=== PATIENT | female | born 1950 | race Caucasian/White ===

== ENCOUNTER 2019-06-20 09:08 | Outpatient (CLI) | payer MEDICARE, SELFPAY ==
--- NOTE | 2019-06-20 09:17 | US_ITS ---
WS: [id number] ADDITIONAL VIEWS LEFT MAMMOGRAM LEFT BREAST ULTRASOUND HISTORY: ABNORMAL MAMMOGRAM - DUCT ECTASIS/FULLNESS COMPARISON: 05/15/2019, 02/28/2017, 10/16/2015 LEFT MAMMOGRAM: Spot compression views and true ML. Asymmetry posterior to the LEFT nipple persists. There is no distortion or retraction of the nipple. There is an adjacent posterior lymph node. LEFT BREAST ULTRASOUND 2-D and color Doppler imaging submitted. Ultrasound directed to the subareolar region. There is no discrete soft tissue mass. There is a benig n lymph node measuring 6 x 4 mm. There is an area of vague mixed echogenicity which is probably madeleine l fibroglandular tissue and corresponds to the finding on the mammogram. There is no shadowing or inc reased vascularity. US/US breast LT limited* [id number] IMPRESSION: BI-RADS: 3-Probably Benign FOLLOW UP: 6 Month Follow-up Recommend LEFT breast mammogram follow-up and possible ultrasound in 6 months. Favor the asymmetry seen posterior to the nipple is benign fibroglandular tissu e.
== END 2019-06-20 09:09 | disposition home or self-care (01) ==
LOC: RADSHAW 09:12
PROVIDERS: PCP Nurse Practitioner Family; Visit Provider Nurse Practitioner Family
DX: N64.89 Other specified disorders of breast (principal); R92.8 Other abnormal and inconclusive findings on diagnostic imaging of breast
CPT/HCPCS: 76642; 77065

== ENCOUNTER → 2019-08-20 10:41 | Outpatient (BNVA) | payer MEDICARE, SELFPAY | PROVIDERS: PCP Nurse Practitioner Family; Visit Provider Specialist | DX: G20 Parkinson's disease (principal); Z87.891 Personal history of nicotine dependence | CPT/HCPCS: 99213 ==

== ENCOUNTER → 2019-11-20 10:41 | Outpatient (BNVA) | payer MEDICARE, SELFPAY | PROVIDERS: PCP Nurse Practitioner Family; Visit Provider Specialist | DX: G20 Parkinson's disease (principal); Z87.891 Personal history of nicotine dependence | CPT/HCPCS: 99213 ==

== ENCOUNTER 2020-01-04 12:30 | Outpatient (CLI) | payer MEDICARE, SELFPAY ==
--- NOTE | 2020-01-04 12:39 | MM_ITS ---
WS: [id number] LEFT DIGITAL MAMMOGRAM WITH CAD LEFT breast ultrasound, limited HISTORY: ABNORMAL mammogram, duct ECTASIS COMPARISON: 02/28/2017, 06/20/2019, 05/15/2019 and 09/30/2014 Technique: CC, MLO and ML views. Compression views MLO and cc. Breast composition: There are scattered areas of fibroglandular density. Dilated tubular structure p osterior to the nipple is again identified. There is an additional stable asymmetry in the anterior L EFT breast just lateral to the nipple line which is been present on multiple prior studies. LEFT breast ultrasound, limited No significant change in appearance of the tubular cystic and complex cystic mass posterior to the ni pple. Similar to the prior study. Favor this is probably an area of duct ectasia due to its stability and appearance. MM/[place] [id number] IMPRESSION: BI-RADS: 3-Probably Benign FOLLOW UP: 6 Month Follow-up Patient to return in May 2020 for bilateral mammography. Additional imagin g of the LEFT breast asymmetry can be obtained to document continued stability.
== END 2020-01-04 12:31 | disposition home or self-care (01) ==
LOC: RADSHAW 12:35
PROVIDERS: PCP Nurse Practitioner Family; Visit Provider Nurse Practitioner Family
DX: R92.8 Other abnormal and inconclusive findings on diagnostic imaging of breast (principal); N64.89 Other specified disorders of breast
CPT/HCPCS: 76642; 77065

== ENCOUNTER 2020-06-16 08:22 | Outpatient (CLI) | payer MEDICARE, SELFPAY ==
--- NOTE | 2020-06-16 08:28 | MM_ITS ---
WS: [id number] BILATERAL DIGITAL DIAGNOSTIC MAMMOGRAM MAMMOGRAPHY WITH CAD CLINICAL INFORMATION: LT BREAST ASYMMETRY COMPARISON: January 04, 2020 TECHNIQUE: Bilateral CC, MLO, and ML views. FINDINGS: Scattered fibroglandular densities bilaterally. Stable asymmetric density at the anterior left breast as previously described No suspicious focal mass, asymmetry, calcifications, or architectural distortion. No evidence of perico gnancy. MM/[place] [id number] IMPRESSION: BI-RADS: 2-Benign FOLLOW UP: 1 Year Follow-up Recommend return to annual diagnostic mammography.
== END 2020-06-16 08:23 | disposition home or self-care (01) ==
LOC: RADSHAW 08:24
PROVIDERS: PCP Nurse Practitioner Family; Visit Provider Nurse Practitioner Family
DX: N64.89 Other specified disorders of breast (principal)
CPT/HCPCS: 77066

== ENCOUNTER → 2020-08-27 09:38 | Outpatient (BNVA) | payer MEDICARE, MEDICAID, SELFPAY | PROVIDERS: PCP Nurse Practitioner Family; Visit Provider Specialist | DX: G20 Parkinson's disease (principal); Z87.891 Personal history of nicotine dependence | CPT/HCPCS: 99213 ==

== ENCOUNTER → 2020-09-04 09:07 | Outpatient (BNVA) | payer MEDICARE, MEDICAID, SELFPAY | PROVIDERS: PCP Nurse Practitioner Family; Visit Provider Surgery | DX: Z86.010 Personal history of colon polyps (principal); Z20.822 Contact with and (suspected) exposure to COVID-19 | CPT/HCPCS: 87635 ==

== ENCOUNTER 2020-09-11 08:35 | Day surgery (SDC) | payer MEDICARE, MEDICAID, SELFPAY ==
[2020-09-05 13:11] VITALS: BMI 34.5
--- NOTE | 2020-09-11 08:51 | ANES.PREANE2 ---
Pre-Anesthetic Assessment Pre-Anesthetic Assessment: Height/Weight: Height 1.6 m Weight 88.451 kg Proposed Procedure: Operation Date: 09/11/20 10:30 Proposed Procedures p Colonoscopy [id number] z86.010(Not Applicable) - Vito Steele MD Was Beta Mansoor taken within 24 hours: N/A Was Clonidine taken within 24 hours: N/A Social: Social History: No alcohol and No tobacco Exam: Pre-Anes Outpt Exam: alert, oriented x 3, clear to auscultation bilaterally and regular rate & rhythm Airway: Submandibular: WNL Cervical ROM: WNL MP: 2 Dentition: Full CV/HEM: CV/HEM: HTN Metabolic: Metabolic: Thyroid Neuropsych: Neuropsych: Dementia Comments: Dysphagia Anesthetic Plan: ASA status: 2 Risk of > 500 ml blood loss (7ml/kg in children): No PFSH Anesthesia PFSH: Medical History History of colon polyps Hypothyroidism Parkinson's Disease Sleep apnea Surgical History H/O repair of rotator cuff H/O: hysterectomy History of colonoscopy with polypectomy (~2017) Family History Other Cancer Dementia Hypertension Parkinsons Stroke Social History Smoking and tobacco status: former smoker Alcohol intake: never History of recent travel: No Data Anesthesia Cardiac Studies: Holter Monitor 07/31/19
[2020-09-11 09:11] VITALS: BP 118/80; PULSE 77; RESP 18; TEMP 36.5; O2SAT 96
[2020-09-11] MEDS: sodium chloride 0.9% 1,000 ML 30 ML IV (09:34)
--- NOTE | 2020-09-11 10:15 | W.PM.OPSFHP ---
Same Day Surgery H&P Indication for Procedure/HPI DATE OF PROCEDURE: September 11, 2020 CHIEF COMPLAINT/INDICATIONFOR SURGICAL PROCEDURE: colon polyps PREOP DIAGNOSIS: screening colonoscopy PLANNED PROCEDRUE: Operation Date: 09/11/20 10:30 Proposed Procedures p Colonoscopy [id number] z86.010(Not Applicable) - Vito Steele MD Medications/Allergies* Home Medications Medication Instructions Recorded Confirmed Type gabapentin 100 mg capsule 100 mg PO BID 08/20/19 09/11/20 History hydrochlorothiazide 12.5 mg capsule 12.5 mg PO DAILY 08/20/19 09/11/20 History levothyroxine 112 mcg capsule 112 mcg PO DAILY 08/20/19 09/11/20 History potassium 99 mg tablet 99 mg PO DAILY 11/20/19 09/11/20 History ascorbic acid (vitamin C) 500 mg 1,000 mg PO DAILY cap 08/27/20 09/11/20 History capsule aspirin 81 mg chewable tablet 81 mg PO DAILY 08/27/20 09/11/20 History cholecalciferol (vitamin D3) 25 25 mcg PO DAILY 08/27/20 09/11/20 History mcg (1,000 unit) capsule multivitamin 1 tab PO DAILY 08/27/20 09/11/20 History omega-3 fatty acids 1,000 mg 1,000 mg PO DAILY 08/27/20 09/11/20 History capsule thiamine HCl (vitamin B1) 100 mg 100 mg PO DAILY 08/27/20 09/11/20 History tablet Allergies/Adverse Reactions Allergy/AdvReac Type Severity Reaction Status Date / Time hydralazine Allergy Severe ADR/ALGY-Hy Verified 09/01/20 08:22 potension Current Medications: Generic Name Dose Route Start Last Admin Trade Name Freq PRN Reason Stop Dose Admin Sodium Chloride 1,000 mls @ 30 mls/hr 09/11/20 09:00 09/11/20 09:34 Sodium Chloride 0.9% IV 09/12/20 08:59 30 mls/hr .Q24H DHRUV Administration Pertinent History/Comorbid Conditions* Medical History (Updated 09/01/20 @ 08:52 by Faustino Bates MD) History of colon polyps Hypothyroidism Parkinson's Disease Sleep apnea Surgical History (Updated 07/11/20 @ 10:07 by Vito Steele MD) H/O repair of rotator cuff H/O: hysterectomy History of colonoscopy with polypectomy (~2017) Family History (Updated 08/20/19 @ 11:36 by Samia De Leon LPN) Dementia Cancer Hypertension Parkinsons Stroke Social History Smoking and tobacco status: former smoker Alcohol intake: never History of recent travel: No Pertinent Exam Findings alert, oriented x 3 and operative site marked Recommendations Surgery/Procedure today Coding Level of Care Code 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
[2020-09-11 11:07] VITALS: BP 103/74; PULSE 66; RESP 16; TEMP 36.3; O2SAT 99
--- NOTE | 2020-09-11 11:10 | ANE.PACU2 ---
Inpatient post-anesthesia follow up: Airway intact: Yes Vital signs: Temperature 97.7 F Pulse Rate 77 Respiratory Rate 18 Blood Pressure 118/80 Pulse Oximetry 96 Oxygen Delivery Me thod Room Air Oxygen Flow Rate Fraction of Inspir ed Oxygen Hydration adequate: Yes Nausea and vomiting: No Pain level: 1 Mental status: Baseline
[2020-09-11 11:22] VITALS: BP 110/66; PULSE 68; RESP 16; TEMP 36.5; O2SAT 98
--- NOTE | 2020-09-11 14:37 | ANE.PACU2 ---
Inpatient post-anesthesia follow up: Airway intact: Yes Vital signs: Temperature 97.7 F Pulse Rate 68 Respiratory Rate 16 Blood Pressure 110/66 Pulse Oximetry 98 Oxygen Delivery Me thod Room Air Oxygen Flow Rate Fraction of Inspir ed Oxygen Hydration adequate: Yes Nausea and vomiting: No Pain level: 1 Mental status: Baseline
== END 2020-09-11 11:55 | disposition home or self-care (01) ==
PROVIDERS: PCP Nurse Practitioner Family; Visit Provider Surgery
PROC: 0DJD8ZZ Inspection of Lower Intestinal Tract, Via Natural or Artificial Opening Endoscopic (ICD-10-PCS; CPT 45378; principal; 2020-09-11 10:30)
DX: Z12.11 Encounter for screening for malignant neoplasm of colon (principal); Z86.010 Personal history of colon polyps; K57.30 Diverticulosis of large intestine without perforation or abscess without bleeding; K64.8 Other hemorrhoids; Z79.82 Long term (current) use of aspirin; E03.9 Hypothyroidism, unspecified; G47.30 Sleep apnea, unspecified; G20 Parkinson's disease
CPT/HCPCS: 45378; 96360; 96361; J2704; J7030

== ENCOUNTER → 2021-02-12 08:07 | Outpatient (BNVA) | payer MEDICARE, MEDICAID, SELFPAY | PROVIDERS: PCP Nurse Practitioner Family; Referring Provider Nurse Practitioner Family; Visit Provider Podiatrist Foot & Ankle Surgery | DX: M79.671 Pain in right foot (principal) | CPT/HCPCS: 73630 ==

== ENCOUNTER → 2021-03-16 10:34 | Outpatient (BNVA) | payer MEDICARE, MEDICAID, SELFPAY | PROVIDERS: PCP Nurse Practitioner Family; Visit Provider Specialist | DX: G20 Parkinson's disease (principal); Z71.89 Other specified counseling; Z87.891 Personal history of nicotine dependence | CPT/HCPCS: 99214 ==

== ENCOUNTER → 2021-08-04 10:50 | Outpatient (BNVA) | payer MEDICARE, MEDICAID, SELFPAY | PROVIDERS: PCP Nurse Practitioner Family; Visit Provider Family Medicine | DX: E03.9 Hypothyroidism, unspecified (principal); R49.0 Dysphonia | CPT/HCPCS: 84443 ==

== ENCOUNTER → 2021-09-14 08:56 | Outpatient (BNVA) | payer MEDICARE, MEDICAID, SELFPAY | PROVIDERS: PCP Nurse Practitioner Family; Visit Provider Specialist | DX: G20 Parkinson's disease (principal); G62.9 Polyneuropathy, unspecified | CPT/HCPCS: 99213; 99214 ==

== ENCOUNTER 2021-10-19 13:43 | Outpatient (CLI) | payer MEDICARE, MEDICAID, SELFPAY ==
--- NOTE | 2021-10-19 13:56 | MM_ITS ---
WS: [id number] BILATERAL 3D TOMOSYNTHESIS DIGITAL SCREENING MAMMOGRAPHY WITH CAD CLINICAL INFORMATION: SCREENING HISTORY: Screening mammogram. No current complaints. COMPARISON: June 16, 2020 TECHNIQUE: Bilateral CC and MLO views. FINDINGS: Scattered fibroglandular densities bilaterally. No suspicious focal mass, asymmetry, calcifications, or architectural distortion. No evidence of malignancy. MM/[place] [id number] IMPRESSION: BI-RADS: 1-Negative FOLLOW UP: 1 Year Follow-up Recommend return to annual screening mammography.
== END 2021-10-19 13:44 | disposition home or self-care (01) ==
LOC: RADSHAW 13:44
PROVIDERS: PCP Nurse Practitioner Family; Visit Provider Family Medicine
DX: Z12.31 Encounter for screening mammogram for malignant neoplasm of breast (principal)
CPT/HCPCS: 77063; 77067

== ENCOUNTER → 2022-05-19 07:29 | Outpatient (BNVA) | payer MEDICARE, MEDICAID, SELFPAY | PROVIDERS: PCP Family Medicine; Visit Provider Specialist | DX: G62.9 Polyneuropathy, unspecified (principal); G20 Parkinson's disease | CPT/HCPCS: 99213 ==

== ENCOUNTER → 2022-06-16 07:58 | Outpatient (BNVA) | payer MEDICARE, MEDICAID, SELFPAY | PROVIDERS: PCP Family Medicine; Visit Provider Podiatrist Foot & Ankle Surgery | DX: G62.9 Polyneuropathy, unspecified (principal); Q82.8 Other specified congenital malformations of skin; B35.1 Tinea unguium; M21.621 Bunionette of right foot | CPT/HCPCS: 17110; 73630 ==

== ENCOUNTER → 2022-08-25 12:26 | Outpatient (BNVA) | payer MEDICARE, MEDICAID, SELFPAY | PROVIDERS: PCP Family Medicine; Visit Provider Family Medicine | DX: G20 Parkinson's disease (principal); E03.9 Hypothyroidism, unspecified; J06.9 Acute upper respiratory infection, unspecified; G62.9 Polyneuropathy, unspecified | CPT/HCPCS: 80053; 84443; 85025 ==

== ENCOUNTER → 2023-01-19 08:13 | Outpatient (BNVA) | payer MEDICARE, MEDICAID, SELFPAY | PROVIDERS: PCP Family Medicine; Visit Provider Otolaryngology | DX: R49.0 Dysphonia (principal); G20 Parkinson's disease; J38.7 Other diseases of larynx | CPT/HCPCS: 31575; 99213 ==

== ENCOUNTER → 2023-02-28 13:44 | Outpatient (BNVA) | payer MEDICARE, MEDICAID, SELFPAY | PROVIDERS: PCP Family Medicine; Visit Provider Family Medicine | DX: J02.9 Acute pharyngitis, unspecified (principal) | CPT/HCPCS: 87071; 87880 ==

== ENCOUNTER → 2023-03-08 10:25 | Outpatient (BNVA) | payer MEDICARE, MEDICAID, SELFPAY | PROVIDERS: PCP Family Medicine; Visit Provider Otolaryngology | DX: J02.9 Acute pharyngitis, unspecified (principal); J38.7 Other diseases of larynx; R49.0 Dysphonia; G20 Parkinson's disease | CPT/HCPCS: 99213 ==

== ENCOUNTER → 2023-05-18 07:38 | Outpatient (BNVA) | payer MEDICARE, MEDICAID, SELFPAY | PROVIDERS: PCP Family Medicine; Visit Provider Specialist | DX: G20.A1 Parkinson's disease without dyskinesia, without mention of fluctuations (principal) | CPT/HCPCS: 99213 ==

== ENCOUNTER → 2023-09-26 13:59 | Outpatient (BNVA) | payer MEDICARE, MEDICAID, SELFPAY | PROVIDERS: PCP Family Medicine; Visit Provider Family Medicine | DX: E03.9 Hypothyroidism, unspecified (principal); R49.0 Dysphonia; G20.B2 Parkinson's disease with dyskinesia, with fluctuations; J37.1 Chronic laryngotracheitis | CPT/HCPCS: 80053; 84443; 85025 ==

== ENCOUNTER 2023-12-13 11:53 | Outpatient (CLI) | payer MEDICARE, MEDICAID, SELFPAY ==
--- NOTE | 2023-12-13 11:55 | XR_ITS ---
WS: [id number] XR lumbar spine 2-3V* [id number] REASON FOR EXAM: night time claudication/numbness lower extrem/deg disc FINDINGS: No significant rotatory scoliosis. Exaggeration of the lumbar lordosis. 5 lumbar vertebrae with rudimentary disc formation at S1-S2. Mild biconcave compression deformities L1-L3. Mild osteophytosis L2-S1. Significant bridging osteophy tosis and endplate sclerosis at T12-L1 and L1-L2. Disc spaces are intact and relatively well preserved. Moderate degenerative change in the facet joints at L5-S1. No significant listhesis. XR/XR lumbar spine 2-3V* [id number] IMPRESSION: Degenerative spondylosis of the lumbar spine as above.
== END 2023-12-13 11:54 | disposition home or self-care (01) ==
LOC: RAD 11:54
PROVIDERS: PCP Family Medicine; Visit Provider Family Medicine
DX: M51.16 Intervertebral disc disorders with radiculopathy, lumbar region (principal); M43.8X6 Other specified deforming dorsopathies, lumbar region; M25.78 Osteophyte, vertebrae; G95.89 Other specified diseases of spinal cord; M40.56 Lordosis, unspecified, lumbar region; M47.817 Spondylosis without myelopathy or radiculopathy, lumbosacral region
CPT/HCPCS: 72100

== ENCOUNTER 2024-01-03 12:47 | Outpatient (CLI) | payer MEDICARE, MEDICAID, SELFPAY ==
--- NOTE | 2024-01-03 13:45 | MR_ITS ---
WS: [id number] MRI LUMBAR SPINE NONCONTRAST TECHNIQUE: Sagittal T1, T2 and STIR imaging. Axial T1 and T2 imaging. CLINICAL INFORMATION: night time cramping / numbness feet / parkinsons COMPARISON: None. FINDINGS: Mild lumbar curve. Exaggeration of the normal lumbar lordosis. Slight anterolisthesis L4 on L5. Disc space narrowing worse at L5-S1. No acute compression fractures. L1-L2: No significant disc bulging. Mild facet arthropathy. Spinal canal and foramen are patent. L2-L3: Mild disc bulging. Mild facet arthropathy. Spinal canal and foramen are patent. L3-L4: Mild annular bulging. Mild facet arthropathy. Tiny LEFT foraminal protrusion with mild LEFT fo raminal narrowing. RIGHT foramen is patent. L4-L5: Mild disc bulge with osteophytic ridging. Moderate to advanced facet arthropathy. Impingement on the LEFT than RIGHT subarticular recess. Mild LEFT and no significant RIGHT foraminal narrowing. L5-S1: Mild disc bulging with osteophytic ridging. Slight effacement of ventral thecal sac. Slight im pingement traversing S1 nerve roots bilaterally. Mild to moderate facet arthropathy. Foramen are eckert nt. Visualized pelvic bony structures: Normal. Paravertebral soft tissues: Normal. Small RIGHT renal cyst. MR/MR lumbar spine wo con* [id number] IMPRESSION: 1. Mild lumbar curve. No acute compression. Grade 1 anterolisthesis L4 on L5. 2. Disc space narrowing worse at L5-S1. Slight effacement of ventral thecal sa c and slight impingement traversing S1 nerve roots with mild central canal sten osis. 3. Tiny LEFT foraminal protrusion L3-4 with slight impingement exiting LEFT L3 nerve root. Recommend correlation with LEFT L3 nerve root symptoms. 4. Impingement on the LEFT L4-5 subarticular recess with mild central canal st enosis. 5. Moderate facet arthropathy worse at L4-5.
--- NOTE | 2024-01-03 14:30 | USCV_ITS ---
Judith Hagan Age: 73 Gender: F : 1950 Exam Date: 01/03/2024 14:33 Ordering Phys: Lexie Morales MD Technologist: [place] [facility] [place]: pad RIGHT LEFT Brachial 137.00 mmHg Brachial 134.00 mmHg Pressure (mmHg) Waveform Pressure (mmHg) Waveform 179.00 CHILD & ADOLESCENT PSYCHIATRIST 150.00 145.00 DPA 159.00 1.30 Ankle/Brachial Index 1.10 135.00 Pre-Exercise Toe Pressure 126.00 0.99 Pre-Exercise Toe/Brachial Index 0.92 FINDINGS The resting MARTHA 1.3 on the right side and 1.1 on the left side Resting TBI 0.99 on the right and 0.92 on the left CONCLUSIONS Normal resting MARTHA and TBI bilaterally No significant arterial obstruction, based on the above findings Dr Iris Shanks MD [facility] (Electronically Signed) Final Date: 04 January 2024 09:57 S
== END 2024-01-03 12:48 | disposition home or self-care (01) ==
LOC: RAD 12:47
PROVIDERS: PCP Family Medicine; Visit Provider Family Medicine
DX: G20.B2 Parkinson's disease with dyskinesia, with fluctuations (principal); G62.9 Polyneuropathy, unspecified; M48.061 Spinal stenosis, lumbar region without neurogenic claudication; I95.1 Orthostatic hypotension; I87.2 Venous insufficiency (chronic) (peripheral); M51.36 Other intervertebral disc degeneration, lumbar region; M47.816 Spondylosis without myelopathy or radiculopathy, lumbar region; M25.78 Osteophyte, vertebrae; N28.1 Cyst of kidney, acquired
CPT/HCPCS: 72148; 93922

== ENCOUNTER → 2024-01-24 13:53 | Outpatient (BNVA) | payer MEDICARE, MEDICAID, SELFPAY | PROVIDERS: PCP Family Medicine; Visit Provider Orthopaedic Surgery | DX: M48.061 Spinal stenosis, lumbar region without neurogenic claudication (principal) | CPT/HCPCS: 72110; 99204 ==

== ENCOUNTER → 2024-02-02 08:02 | Outpatient (BNVA) | payer MEDICARE, MEDICAID, SELFPAY | PROVIDERS: PCP Family Medicine; Visit Provider Specialist | DX: G20.B2 Parkinson's disease with dyskinesia, with fluctuations (principal) | CPT/HCPCS: 99214 ==

== ENCOUNTER 2024-02-24 08:07 | Outpatient (RCR) | payer MEDICARE, MEDICAID, SELFPAY | END 2024-03-12 23:59 | disposition home or self-care (01) | LOC: SPT 08:07 | PROVIDERS: Visit Provider Specialist | DX: G20.B2 Parkinson's disease with dyskinesia, with fluctuations (principal) | CPT/HCPCS: 97110; 97162 ==

== ENCOUNTER 2024-03-13 06:00 | Outpatient (RCR) | payer MEDICARE, MEDICAID, SELFPAY | END 2024-04-05 23:59 | disposition home or self-care (01) | LOC: SPT 06:00 | PROVIDERS: Visit Provider Specialist | DX: G20.B2 Parkinson's disease with dyskinesia, with fluctuations (principal) | CPT/HCPCS: 97110; 97112; 97530 ==

== ENCOUNTER → 2024-05-28 09:52 | Outpatient (BNVA) | payer MEDICARE, MEDICAID, SELFPAY | PROVIDERS: PCP Family Medicine; Visit Provider Podiatrist Foot & Ankle Surgery | DX: G62.9 Polyneuropathy, unspecified (principal); Q82.8 Other specified congenital malformations of skin; B35.1 Tinea unguium; M21.621 Bunionette of right foot | CPT/HCPCS: 17110 ==

== ENCOUNTER 2024-06-11 15:22 | Outpatient (CLI) | payer MEDICARE, MEDICAID, SELFPAY ==
--- NOTE | 2024-06-11 15:26 | XR_ITS ---
WS: [id number] Chest 2 views, 06/11/2024 Clinical Data: continued cough 10 p antibiotic course Comparison: Two-view chest, 01/01/2021 Findings: No nodules, masses or effusions are seen. The heart is normal. The pulmonary vascularity is not increased. No pneumonia or pneumothorax is seen. The diaphragms are flattened. The aortic arch a nd descending thoracic aorta show calcification. XR/XR chest 2V* [id number] Impression: Atherosclerosis and hyperinflation.
== END 2024-06-11 15:23 | disposition home or self-care (01) ==
LOC: RAD 15:24
PROVIDERS: PCP Family Medicine; Visit Provider Family Medicine
DX: J18.9 Pneumonia, unspecified organism (principal); J84.89 Other specified interstitial pulmonary diseases; I70.0 Atherosclerosis of aorta
CPT/HCPCS: 71046

== ENCOUNTER → 2024-07-11 09:18 | Outpatient (BNVA) | payer MEDICARE, MEDICAID, SELFPAY | PROVIDERS: PCP Family Medicine; Visit Provider Podiatrist Foot & Ankle Surgery | DX: G62.9 Polyneuropathy, unspecified (principal); Q82.8 Other specified congenital malformations of skin; B35.1 Tinea unguium; M21.621 Bunionette of right foot | CPT/HCPCS: 99213 ==

== ENCOUNTER → 2024-08-16 10:30 | Outpatient (BNVA) | payer MEDICARE, MEDICAID, SELFPAY | PROVIDERS: PCP Family Medicine; Visit Provider Specialist | DX: G20.B1 Parkinson's disease with dyskinesia, without mention of fluctuations (principal); G62.9 Polyneuropathy, unspecified | CPT/HCPCS: 99214 ==

== ENCOUNTER → 2024-09-27 10:12 | Outpatient (BNVA) | payer MEDICARE, MEDICAID, SELFPAY | PROVIDERS: PCP Family Medicine; Visit Provider Family Medicine | DX: E55.9 Vitamin D deficiency, unspecified (principal); E03.9 Hypothyroidism, unspecified | CPT/HCPCS: 80053; 82652; 84443; 85025 ==

== ENCOUNTER → 2025-01-31 09:22 | Outpatient (BNVA) | payer MEDICARE, MEDICAID, SELFPAY | PROVIDERS: PCP Family Medicine; Visit Provider Family Medicine | DX: E03.9 Hypothyroidism, unspecified (principal) | CPT/HCPCS: 84443 ==